=== PATIENT | female | born 1970 | race Asian ===

== ENCOUNTER 2024-07-14 12:45 | Emergency (ER) | payer OTHER ==
[~2024-07-14] VITALS: Ht 154.9 cm; Wt 72.0 kg
[2024-07-14 12:53] VITALS: TEMP 98.2
[2024-07-14 13:38] LABS: BASOPHILS % (AUTO) 0.7 % (0.0-2.0); EOSINOPHILS % (AUTO) 1.9 % (1.0-6.0); HEMATOCRIT 39.7 % (36-46); HEMOGLOBIN 13.1 g/dL (12.0-16.0); LYMPHOCYTES # (AUTO) 1.7 K/uL (1.0-4.8); LYMPHOCYTES % (AUTO) 31.4 % (22.0-44.0); MEAN CORPUSCULAR HEMOGLOBIN 30.9 pg (26.0-34.0); MEAN CORPUSCULAR VOLUME 94 fL (80-100); MONOCYTES # (AUTO) 0.5 K/uL (0.1-1.0); MONOCYTES % (AUTO) 10.1 % (2.0-9.0); NEUTROPHILS # (AUTO) 2.9 K/uL (1.8-7.7); NEUTROPHILS % (AUTO) 55.9 % (40.0-70.0); PLATELET COUNT (AUTO) 255 K/uL (150-450); RED BLOOD CELL COUNT(AUTO) 4.25 MIL/uL (4.00-5.20); RED CELL DISTRIBUTION WIDTH 13.9 % (11.5-14.5); WHITE BLOOD COUNT (AUTO) 5.3 K/uL (4.5-11.0)
[2024-07-14 13:46] LABS: ANION GAP 6 mmol/L (8-16); CALCIUM, TOTAL 8.6 mg/dL (8.8-10.5); CARBON DIOXIDE 30 mmol/L (22-29); CHLORIDE 105 mmol/L (98-107); GLOMERULAR FILTR. RATE CALC > 60 mL/min (>60); GLUCOSE,RANDOM 124 mg/dL (70-110); POTASSIUM 3.7 mmol/L (3.5-5.1); SODIUM SERUM 141 mmol/L (136-145); UREA NITROGEN, BLOOD 14 mg/dL (7-18)
[2024-07-14 13:54] LABS: CREATINE KINASE, TOTAL ONLY 123 U/L (26-192); TROPONIN I-HIGH SENSITIVITY 20 ng/L (<51)
[2024-07-14 13:55] LABS: B-TYPE NATRIURETIC PEPTIDE 336 pg/mL (0-100)
[2024-07-14 15:43] VITALS: BP 100/72; PULSE 92; RESP 18; O2SAT 99
[2024-07-14 16:35] LABS: TROPONIN I-HIGH SENSITIVITY 24 ng/L (<51)
[2024-07-14] MEDS: ACETAMINOPHEN 500 MG TABLET PO ONE (18:52)
== END 2024-07-14 19:12 | disposition home or self-care (01) ==
LOC: EMS 12:45 → EDBD 12:45 → EMS 19:12
DX: M25.512 Pain in left shoulder (principal); R07.89 Other chest pain; M54.2 Cervicalgia; E11.9 Type 2 diabetes mellitus without complications; I10 Essential (primary) hypertension
CPT/HCPCS: 71045; 80048; 82550; 83880; 84484; 85025; 85610; 85730; 93005; 99285; 36415-L1; 36415-TC